=== PATIENT | male | born 1940 | race Caucasian/White ===

== ENCOUNTER 2018-06-17 06:14 | Day surgery (SDC) | payer OTHER ==
[2018-06-15 16:56] VITALS: BMI 28.5
[2018-06-17] MEDS ORDERED: ROPIVACAINE HCL 0.5% 30ML VIAL ONE (07:20)
[2018-06-17] MEDS ORDERED: DEXAMETHASONE SOD PHOSPHATE/PF 10 MG/ML SDV ONE (07:20)
[2018-06-17] MEDS ORDERED: MIDAZOLAM HCL 2 MG/2 ML SINGLE DOSE VIAL ONE ×2 (07:21)
--- NOTE | 2018-06-17 08:04 | HP ---
Satellite [facility] - Chief Complaint Chief Complaint: LEFT SHOULDER PAIN History Source: Patient - Past Medical History Allergies/Adverse Reactions: Allergies Allergy/AdvReac Type Severity Reaction Status Date / Time No Known Allergies Allergy Unverified 06/17/18 06:37 - Current Medications Current Medications: Home Medications Medication Instructions Recorded Atorvastatin Ca [Lipitor -] 10 mg PO DAILY tablet 02/17/14 Levothyroxine Sodium [Synthroid] 175 mcg PO DAILY tablet 02/17/14 Lisinopril/Hydrochlorothiazide 1 each PO DAILY tablet 02/17/14 [Lisinopril-Hctz 10-12.5 Mg Tab] propRANOLol HCL [Inderal La -] 120 mg PO DAILY 02/17/14 Satellite Physical Exam - Physical Examination Vital Signs: Vital Signs Period Temp Pulse Resp BP Sys/East Pulse Ox Last 24 Hr 98.1 F 65 16 135/78 98 Extremities: Other (+ WEAKNESS WITH TDA, + IMPINGEMENT SIGN) Satellite Impression/Plan - Impression/Plan Impression: INMPINGEMENT LEFT SHOULDER +/- RC TEAR Operative Procedure: LEFT SHOULDER ARTHROSCOPY AND DECOMPRESSION POSSIBLE RC REPAIR Date to be Performed: 06/17/18
[2018-06-17] MEDS ORDERED: ceFAZolin SODIUM 1 GM VIAL IVPB ONE (08:20)
[2018-06-17] MEDS ORDERED: ePHEDrine SULFATE 50 MG/1 ML AMPULE ONE (08:30)
[2018-06-17] MEDS ORDERED: PROPOFOL 20 ML ONE ×2 (08:46→10:26)
[2018-06-17] MEDS ORDERED: KETOROLAC TROMETHAMINE 30 MG/1 ML VIAL ONE ×2 (08:48→10:38)
--- NOTE | 2018-06-17 09:33 | OP ---
Operative Note - Note: Operative Date: 06/17/18 ([facility]) Pre-Operative Diagnosis: left shoulder rct, impingement Operation: left shoulder arthroscopy with RCR, SAD Implants: 1 arthrex swivelock Post-Operative Diagnosis: Same as Pre-op Surgeon: Trent Orozco Nutrition Aide: Harvinder Davis Anesthesiologist/GROUP EXERCISE CLASS INSTRUCTOR: James Kenney Anesthesia: Local, MAC Specimens Removed: shavings Estimated Blood Loss (mls): 5 Operative Report Dictated: Yes
[2018-06-17] MEDS ORDERED: oxyCODONE HCL 5 MG TABLET PO PRN ×2 (10:27)
[2018-06-17] MEDS ORDERED: ONDANSETRON 4 MG/2 ML VIAL IVPUSH PRN (10:27)
[2018-06-17] MEDS ORDERED: LACTATED RINGERS SOLUTION 1,000 ML IV SCH (10:30)
[2018-06-17 11:54] VITALS: BP 119/64; PULSE 61; TEMP 97.8
--- NOTE | 2018-06-17 13:25 | OP ---
DATE OF OPERATION: 06/17/2018 PREOPERATIVE DIAGNOSIS: Left rotator cuff tear. POSTOPERATIVE DIAGNOSIS: Left rotator cuff tear. PROCEDURE: Arthroscopy left shoulder with subacromial decompression and left rotator cuff repair arthroscopically. SURGEON: Trent Orozco MD CITY ASSESSOR: KEITH Krishna ANESTHESIA: Regional and general. CLOSURE: One SwiveLock with SutureTape sutures, 3-0 nylon for skin. ESTIMATED BLOOD LOSS: Negligible. COMPLICATIONS: None. CONDITION: To recovery room in stable condition. DESCRIPTION OF OPERATIVE PROCEDURE: Patient was taken to the operating room on June 17, 2018. Regional scalene block anesthesia was administered by the anesthesiologist as well as IV sedation. Patient was placed in the beach chair position with all prominences well padded. The left shoulder area was prepped and draped in the usual sterile fashion. First a diagnostic arthroscopy of the glenohumeral joint was performed. A posterior portal was made 2 fingerbreadths below the acromion, first with a 15 blade followed by a blunt trocar. An exam of the glenohumeral joint revealed the following: Intact glenoid and humeral head articular cartilage, intact labrum circumferentially. No loose bodies in the axillary pouch. Biceps tendon was intact to its insertion with some fraying. Subscapularis was intact to its insertion with some fraying, as well. Looking superiorly the supraspinatus was found to be torn from the greater tuberosity. Rest of the rotator cuff appeared to be intact. Fluid was drained from the shoulder, and trocar was removed. The posterior trocar was redirected in the subacromial space. An accessory lateral portal was made using a 15 blade followed by a blunt trocar. Large amount of bursal tissue was encountered in the subacromial space, and fluid was debrided using a shaver. A large anterior spur was encountered on the inferior aspect on the undersurface of the acromion, and acromioplasty was then performed using the Acromionizer sarah gaining sufficient height for the rotator cuff beneath. The coracoacromial ligament was identified and detached off the anterior acromion and was further debrided. A shaver and ArthroCare device were used to clean off fibrous tissue around the rotator cuff. This exposed a crescent tear of the anterior portion of the supraspinatus. This area was freshened up with the shaver. The bone on the greater tuberosity was shaved to expose some bone and have some bleeding surface to mat down the tendon. Two SutureTape sutures were passed in horizontal mattress fashion using the [place] suture passer device. The sutures exited the lateral portal. One SwiveLock corkscrew anchor was used to fixate the rotator cuff to the greater tuberosity, pulling it down, matting it down nicely. Excellent fixation was obtained. Range of motion revealed excellent stability. The repair was good clearance of the subacromial space. Fluid was drained from the shoulder. The portals were closed with 3-0 nylon. A sterile pressure Aquacel dressing was applied following by a sling. The patient was awakened from anesthesia and transferred to the recovery room in stable condition. No complications. Estimated blood loss was negligible. Yeu [id number]
== END 2018-06-17 11:55 | disposition home or self-care (01) ==
LOC: JASU-SURG 06:14
PROVIDERS: ATTEND Orthopaedic Surgery
PROC: 0LQ24ZZ Repair Left Shoulder Tendon, Percutaneous Endoscopic Approach (ICD-10-PCS; 2018-06-17)
PROC: 0RNK4ZZ Release Left Shoulder Joint, Percutaneous Endoscopic Approach (ICD-10-PCS; principal; 2018-06-17 08:00)
DX: M75.102 Unspecified rotator cuff tear or rupture of left shoulder, not specified as traumatic (principal)
CPT/HCPCS: 94760